=== PATIENT | male | born 1975 | race Caucasian/White ===

== ENCOUNTER 2023-06-10 10:30 | Outpatient (CLI) | payer OTHER, SELFPAY ==
--- NOTE | 2023-06-10 13:36 | W.ANESCHARGE ---
Anesthesia Charges Start Date/Time Anesthesia Start Date: 06/10/23 Anesthesia Start Time: 11:50 Stop Date/Time Anesthesia Stop Date: 06/10/23 Anesthesia Stop Time: 12:35
--- NOTE | 2023-06-10 13:41 | W.ANESCHARGE ---
Anesthesia Charges Start Date/Time Anesthesia Start Date: 06/10/23 Anesthesia Start Time: 11:50 Stop Date/Time Anesthesia Stop Date: 06/10/23 Anesthesia Stop Time: 12:35
== END 2023-06-10 10:31 | disposition home or self-care (01) ==
LOC: OP CLINIC 10:34
PROVIDERS: PCP Student in an Organized Health Care Education/Training Program; Visit Provider Surgery
DX: Z12.11 Encounter for screening for malignant neoplasm of colon (principal); K63.5 Polyp of colon
CPT/HCPCS: 00811; 45385; 88305; J2704

== ENCOUNTER 2024-08-23 21:02 | Emergency (ER) | payer BC, SELFPAY ==
--- OUTSIDE RECORDS SUMMARY | 2024-08-23 21:04 | XMS_ITS | Clinical Summary ---
Author Organization [facility] Address [address] [place] [address] Care Team Providers Care Stitching Department Supervisor Name Role Phone Henry Macias MD Primary Care Provider [phone] Source Comments You are receiving this document as you are listed as the primary care provider,follow-up provider, or the patient has been referred to you for consultation.This is in compliance with the Medicare and[facility] EHR Incentive Program,which states Providers who transition their patient to another setting of careor provider of care or refers their patient to another provider of care shouldprovide summary care record for each transition of care or referral. [facility] Allergies No known active allergies Medications Emtricitabine-Te nofovir AF (DESCOVY) 120-15 MG TABS 12/14/2023 Active acetaZOLAMIDE (DIAMOX) 125 MG tablet Take 1 Tablet (125 mg) by mouth. 12/28/2023 Active ALPRAZolam (XANAX) 0.25 MG tablet Take 1 Tablet (0.25 mg) by mouth every 12 hours as needed. 12/09/2023 Active losartan/hydroch lorothiazide (HYZAAR) 100-25 MG tablet Take 1 Tablet by mouth daily. 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 Previous trial of beta óscar. #10 per year. Hyperlipidemia 06/17/2020 Essential hypertension 03/13/2019 Immunizations Immunization Administration Dates Next Due Flu Vac Preserv Free (3+yrs) 12/09/2023 Fluzone Qiv Multidose Vial 0 .25 (6-35 Mos) 12/27/2019 HepA Adult (19+ yrs) 12/28/2023 HepA, Unspecified Formulation 01/13/1999 HepB Adult (Engerix-B, 20+ y rs, 3 dose series) 12/28/2023,06/24/2016,02/11/2016,10/30 Influenza (Flucelvax) 12/18/2020 Influenza (Flucelvax), Prese rv Free QIV 01/09/2023,11/28/2021 Influenza IIV4 (Quadrivalent ) 0.5mL (45753) 12/27/2019 Jynneos 01/03/2024 MCV4 Menveo 2m.+ (two vial) 10/31/2015 Meningococcal ACWY, Unspecif ied Formulation 01/13/1999 Moderna COVID-19 12+ 12/09/2023,01/09/2023 Moderna Monovalent 12+ 07/16/2020,06/20/2020 Pfizer Bivalent 12+ 11/28/2021 Pfizer Monovalent 12+ Purple Top 01/24/2021 Tdap 12/09/2023,09/26/2013 Typhoid (Typhim Vi, IM) 12/28/2023 Typhoid, Unspecified Formulation 01/13/1999 YF (Yellow Fever) 01/13/1999 Social History Tobacco Use Types Packs/Day Years Used Date Smoking Tobacco: Never Smokeless Tobacco: Never Alcohol Use Standard Drinks/Week Comments Yes 21 (1 standard drink = 0.6 oz pu re alcohol) PHQ-2 Answer Date Recorded PHQ-2 Score 0 02/02/2022 Sex and Gender Information Value Date Recorded Sex Assigned at Not on file 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 Gender Identity Not on file Sexual Orientation Not on file Last Filed Vital Signs Vital Sign Reading Time Taken Comments Blood Pressure 120/80 02/02/2022 12:11 PM TECHNICAL SERVICE ENGINEER Pulse 75 02/02/2022 12:11 PM TECHNICAL SERVICE ENGINEER Temperature 36.1 C (97 F) 11/14/2020 8:57 AM CDT Respiratory Rate 10 03/13/2019 1:44 PM TECHNICAL SERVICE ENGINEER Oxygen Saturation - - Inhaled Oxygen Concentration - - Weight 83 kg (183 lb) 02/02/2022 12:11 PM TECHNICAL SERVICE ENGINEER Height 180.3 cm (5' 11) 02/02/2022 12:11 PM TECHNICAL SERVICE ENGINEER Body Mass Index 25.52 02/02/2022 12:11 PM TECHNICAL SERVICE ENGINEER Plan of Treatment Health Maintenance Due Date Last Done Comments Colonoscopy 1975 Hep C Screening (Preventive Services) 1975 Adult Preventive Visit 07/04/2021 07/04/2020 Orthopoxvirus Vaccine (2 - Risk post-exposure 2-dose series) 01/31/2024 01/03/2024 Cholesterol 06/13/2025 06/13/2020 Zoster/Shingles Vaccine (1 of 2) 02/19/2026 DTaP/Tdap/Td Vaccine (3 - Tdap) 12/08/2033 12/09/2023, 09/26/2013 MCV4 Vaccine Aged Out 10/31/2015, 01/13/1999 No lo nger eligible based on patient's age to complete this topic HIV Screening (Preventive Services) Completed 06/13/2020 COVID-19 Vaccine Completed 12/09/2023, , 11/28/2021, Additional history exists Influenza Vaccine Completed 12/09/2023, , 11/28/2021, Additional history exists HepA Vaccine Completed 12/28/2023, 01/13/1999 HepB Vaccine Completed 12/28/2023, 04/0 07/2016, 02/11/2016, Additional history exists Hib Vaccine Aged Out No longer eligi ble based on patient's age to complete this topic IPV (Polio) Vaccine Aged Out No longe r eligible based on patient's age to complete this topic Meningococcal B Vaccine Aged Out No l onger eligible based on patient's age to complete this topic Pneumococcal Vaccine Aged Out No long er eligible based on patient's age to complete this topic Procedures Procedure Name Priority Date/Time Associated Diagnosis Comments HIV 1/2 AG/AB 4TH GEN Routine 06/13/2020 9:12 AM CDT Screening for HIV (human immunodeficiency virus) LIPID PANEL & DIRECT LDL (IF NEEDED) Routine 06/13/2020 9:12 AM CDT Screening for hyperlipidemia from Last 3 Months or Most Recently Relevant to Health Maintenance Results * HIV 1/2 Ag/Ab 4th Generation (06/13/2020 9:12 AM CDT) Pathologist [facility] HIV 1/2 Antigen/Anti body (4th generation) Negative (Non Reactive) Negative (Non Reactive) 06/13/2020 3:39 PM CDT [facility] Comment:HIV-1 p24 Antigen an d HIV-1/HIV-2 Antibody not detected Blood Venipuncture / Unknown 06/13/2020 9:12 AM CDT 06/13/2020 9:12 AM CDT Henry Macias MD LAB_1 Final Result Performing Organization Address City/State/[facility] Co de Phone Number [facility] [address] [phone] * (ABNORMAL) Lipid Panel and Direct LDL(If Needed) (06/13/2020 9:12 AM CDT) [facility] Cholesterol 243(H) 0 - 199 mg/dL 06/13/2020 3:50 PM CDT [facility] Triglyceride 124 <=149 mg/dL 06/13/2020 3:50 PM CDT [facility] HDL Cholesterol 54 >=40 mg/dL 06/13/2020 3:50 PM CDT [facility] LDL, Calculated 164(H) <130 mg/dL 06/13/2020 3:50 PM CDT [facility] Non HDL Chol, Calculated 189 mg/dL 06/13/2020 3:50 PM CDT [facility] Cholesterol/HDL Ratio 4.5 06/13/2020 3:50 PM CDT [facility] Hours Fasting 12 06/13/2020 3:50 PM CDT [facility] Blood Venipuncture / Unknown 06/13/2020 9:12 AM CDT 06/13/2020 9:12 AM CDT Henry Macias MD LAB_1 Final Result [facility] [address] [address], [facility] [phone] [facility] [address] [place] [address], [facility] [phone] from Last 3 Months or Most Recently Relevant to Health Maintenance Insurance SELF INSURED SELF INSURED Care Teams Stitching Department Supervisor Relationship Specialty [place] [address] [place] [address] PCP - General Family Practice 07/04/20
--- OUTSIDE RECORDS SUMMARY | 2024-08-23 21:05 | XMS_ITS | Clinical Summary ---
Author Organization [facility] Address [address] [place] [address] Care Team Providers Care Auto Inspection Specialist Name Role Phone Pcp, No Primary Care Provider Unavailabl e Allergies No known active allergies Medications losartan-hydroch lorothiazide (HYZAAR) 100-25 mg tabletIndication s:HTN (hypertension) Take 1 Tablet by mouth once daily. 90 Tablet 3 4 Active ALPRAZolam (XANAX) 0.25 mg tabletIndication s:Anxiety,Fear of flying Take 1 Tablet (0.25 mg) by mouth every 12 hours if needed for Panic or Anxiety. 25 Tablet 4 Active acetaZOLAMIDE (DIAMOX) 125 mg tabletIndication s:Counseling for travel Take 125 mg by mouth two times daily. Begin 1 day before through 2 days after arriving at highest altitude. 6 Tablet 4 Active sildenafil citrate (VIAGRA) 25 mg tabletIndication s:Erectile dysfunction, unspecified erectile dysfunction type Take 1 Tablet (25 mg) by mouth once daily if needed for Erectile Dysfunction. Take 30 minutes to 4 hours before sexual activity. Max 100mg/24hr. 30 Tablet 11 4 Active EMTRICITABINE 200 MG-TENOFOVIR ALAFENAMIDE FUMARATE 25 MG TABLET 200-25 mgIndications:En counter for HIV pre-exposure prophylaxis Take 1 Tablet by mouth once daily. 60 Tablet 5 Active EMTRICITABINE 200 MG-TENOFOVIR ALAFENAMIDE FUMARATE 25 MG TABLET (DESCOVY) 200-25 mgIndications:En counter for HIV pre-exposure prophylaxis Take 1 Tablet by mouth once daily. 60 Tablet 5 08/16/19 25 Discontinu ed(Reorder (E-cancel not sent)) Active Problems Problem Noted Date Diagnosed Date Rotator cuff tendonitis, right 07/09/2023 Tendonitis of long head of biceps brachii of rig ht shoulder 07/09/2023 Panic attack 12/25/2020 08/31/2022 Overview (08/31/2022): Use of xanax for flying. Previous trial of beta óscar. #10 per year. Hyperlipidemia 06/17/2020 08/31/2022 Essential hypertension 03/13/2019 3 Immunizations Immunization Administration Dates Next Due COVID-19 VACCINE SPIKEVAX (M ODERNA 50MCG/0.5ML) 12YO+ PFS 12/09/2023,01/09/2023 Hepatitis A (Adult) 12/28/2023 Hepatitis A (Peds),Unspecified 01/13/1999 Hepatitis B (Adult) 12/28/2023, 7,02/11/2016,10/30 INFLUENZA, IIV3 PF (AGE >= 6 MO) 12/09/2023 Influenza, IIV4 (=>6mos) MDV 12/27/2019 Influenza, Injectable, Mdck, Quadrivalent, W/preservative 12/18/2020 Influenza,CCIIV4 PRESERV FREE 01/09/2023, 022 MENINGOCOCCAL VACCINE 1 VIAL 10-55YO (MENVEO) 10/31/2015 Meningococcal, Unspecified 01/13/1999 Tdap 12/09/2023,09/26/2013 Typhoid (injectable) 12/28/2023 Typhoid, Unspecified 01/13/1999 Yellow Fever 01/13/1999 Family History Medical History Relation Name Comments Diabetes Father Thyroid Disease Father Brain cancer Mother Relation Name Status Comments Father Mother Social History Tobacco Use Types Packs/Day Years Used Date Smoking Tobacco: Never Smokeless Tobacco: Never Tobacco Cessation:Counseling Given: Yes Alcohol Use Standard Drinks/Week Comments Yes 0 (1 standard drink = 0.6 oz pur e alcohol) 14 drinks per week PHQ-2 Answer Date Recorded PHQ-2 TOTAL SCORE 0 12/09/2023 Social Connections Answer Date Recorded Do you often feel lonely or isolated from those around you? 0 12/09/2023 Financial Resource Strain Answer Date R ecorded Difficulty of Paying Living Expenses 3 12/09/2023 Difficulty of Paying Living Expenses Not on file 12/09/2023 Food Insecurity Answer Date Recorded Do you worry your food will run out before you are able to buy more? 1 12/09/2023 Transportation Needs Answer Date Record ed Does lack of transportation keep you from medica l appointments? 1 12/09/2023 Does lack of transportation keep you from work, meetings or getting things that you need? 1 12/09/2023 Housing Stability Answer Date Recorded What is your housing situation today? 1 12/09/2023 Utilities Answer Date Recorded Do you have trouble paying f or utilities (for example, heat, electricity, water, phone)? 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 Gender Identity Not on file Sexual Orientation Not on file Obstetrics History Last Filed Vital Signs Vital Sign Reading Time Taken Comments Blood Pressure 141/94 12/28/2023 1:46 PM CDT Pulse 78 12/28/2023 1:46 PM CDT Temperature 36.8 C (98.2 F) 08/31/2022 9:31 AM CDT Respiratory Rate - - Oxygen Saturation 100% 12/28/2023 1:44 PM CDT Inhaled Oxygen Concentration - - Weight 90.5 kg (199 lb 8 oz) 12/09/2023 9:06 AM CDT Height 178.5 cm (5' 10.28) 12/09/2023 9:06 AM C DT Body Mass Index 28.4 12/09/2023 9:06 AM CDT Plan of Treatment Upcoming Encounters Date Type Department Care Team (Late st Contact Info) Description 09/07/2024 8:15 AM CDT Orders Only [facility] [address] [place] [address] Lab, [place] Health Maintenance Due Date Last Done Comments BMI (ht and wt on same day) for age 18+ 12/08/2024 12/09/2023, 08/31/2022 Depression screening for age 12+ 12/08/2024 12/09/2023, 12/09/2023, 08/31/2022 Colonoscopy through age 75 06/09/202806/09 (Verified in Care Everywhere or Patient Record) Lipids for age 45-75 12/08/2028 12/09/2023, 09/01/19 23 Tetanus booster 12/08/2033 12/09/2023, 09/26/2013 Hepatitis C screening for age 18-79 Completed 08/31/2022 COVID-19 vaccine series Completed 12/09/19 24, 01/09/2023, 11/28/2021, Additional history exists HIV for age 15-65 Completed 12/09/2023, 08/31/2022 Influenza Vaccine Completed 12/09/2023, , 11/28/2021, Additional history exists Tdap Completed 12/09/2023, 09/26/2013 Hepatitis B series for 19+ Completed 12/27, 06/24/2016, 02/11/2016, Additional history exists Pneumococcal series for age 6-49 Aged Out No longer eligible based on patient's age to complete this topic Procedures Procedure Name Priority Date/Time Associated Diagnosis Comments HIV 1/2 ANTIGEN/ANTIBODY FOURTH GENERATION W/RFL (QUEST) Routine 12/09/2023 9:55 AM CDT LIPID PANEL W REFLEX MEASURED LDL Routine 12/09/2023 9:55 AM CDT Hyperlipidemia, unspecified hyperlipidemia type LC HCV ANTIBODY RFX TO QUANT PCR Routine 08/31/2022 10:35 AM CDT Screening examination for STD (sexually transmitted disease) from Last 3 Months or Most Recently Relevant to Health Maintenance Results * HIV 1/2 ANTIGEN/ANTIBODY FOURTH GENERATION W/RFL (QUEST) (12/09/2023 9:55 AM CDT) HIV AG/AB, 4TH GEN NON-REACT ESTELLE NON-REACT ESTELLE [facility] Comment: HIV-1 antigen and HIV-1/HIV-2 antibodies were not detected. There is no laboratory evidence of HIV infection. PLEASE NOTE: This information has been disclosed to you from records whose confidentiality may be protected by state law. If your state requires such protection, then the state law prohibits you from making any further disclosure of the information without the specific written consent of the person to whom it pertains, or as otherwise permitted by law. A general authorization for the release of medical or other information is NOT sufficient for this purpose. For additional information please refer to http://CloudOpt.Everyone Counts/faq/BIH739 (This link is being provided for informational/ educational purposes only.) The performance of this assay has not been clinically validated in patients less than 2 years old. 12/09/2023 9:55 AM CDT 12/09/2023 9:59 AM CDT Yennyclarence Mccannmarti DO SEND OUTS Final Result Performing Organization Address City/State/[place] Co de Phone Number [facility] [address] [place] [address], [facility] [address] [place] [address] * (ABNORMAL) LIPID PANEL W REFLEX MEASURED LDL (12/09/2023 9:55 AM CDT) CHOLESTEROL, TOTAL 240(H) <200 mg/dL [facility] HDL CHOLESTEROL 47 > OR = 40 mg/dL [facility] TRIGLYCERIDES 129 <150 mg/dL [facility] LDL-CHOLESTEROL 167(H) mg/dL (calc) [facility] Comment: Reference range: <100 Desirable range <100 mg/dL for primary prevention; <70 mg/dL for patients with CHD or diabetic patients with > or = 2 CHD risk factors. LDL-C is now calculated using the Vinny calculation, which is a validated novel method providing better accuracy than the Friedewald equation in the estimation of LDL-C. Francisco VALENCIA et al. DOTTIE. 2013;310(19): 8492-4695 (http://education.FreeAgent.PlanGrid/faq/WVK035) CHOL/HDLC RATIO 5.1(H) <5.0 (calc) [facility] NON HDL CHOLESTEROL 193(H) <130 mg/dL (calc) [facility] Comment: For patients with diabetes plus 1 major ASCVD risk factor, treating to a non-HDL-C goal of <100 mg/dL (LDL-C of <70 mg/dL) is considered a therapeutic option. Blood BLOOD SPECIMEN / Unknown 12/09/2023 9:55 AM CDT 12/09/2023 9:59 AM CDT Adei Ramyq DO CHEMISTRY Final Result [facility] [address] [place] [address], [facility] [address] [place] [address] * LC HCV ANTIBODY RFX TO QUANT PCR (08/31/2022 10:35 AM CDT) [facility] HCV Ab Non Reactive Non Reactive 09/02/2022 10:06 PM CDT [facility] Blood BLOOD SPECIMEN / Unknown Venipuncture / Unknown 08/31/2022 10:35 AM CDT 08/31/2022 10:36 AM CDT Narrative [facility] ([facility]) - 09/02/2022 10:06 PM CDT Performed at: [address] [place] [id number] Construction Mill[employer]: Nick Gr MD, Phone: [phone] us Adeclarence Ramymarti DO LABORATORY Final Result [facility] ([facility]) [address] [place] [id number], from Last 3 Months or Most Recently Relevant to Health Maintenance Care Teams Auto Inspection Specialist Relationship Specialty Start Date End Date Pcp, No . PCP - General 03/25/22
[2024-08-23 21:14] VITALS: BP 155/77; PULSE 85; RESP 18; TEMP 36.8; O2SAT 99; BMI 27.9
--- NOTE | 2024-08-23 21:40 | ED.GENADULT ---
HPI - General Adult General Chief complaint: Laceration/Wound Stated complaint: L pointer finger lac Time Seen by Provider: 08/23/24 21:39 History of Present Illness HPI narrative: CC: Left Pointer Finger Laceration pt. cut finger with knife while making food. bleeding hasn't stopped . cms intact. 49-year-old man presenting to the emergency department following cutting his left index finger. I believe was cutting cabbage? Notes to have shaved through his nail and finger. Has had trouble controlling the bleeding. Related Data Home Medications ?Medication ?Instructions ?Recorded ?Confirmed emtricitabine 200 mg-tenofovir 1 tab PO DAILY 08/23/24 08/23/24 alafenamide fumarate 25 mg tablet (Descovy) losartan 100 1 tab PO DAILY 08/23/24 08/23/24 mg-hydrochlorothiazide 25 mg tablet Allergies Allergy/AdvReac Type Severity Reaction Status Date / Time No Known Drug Allergies Allergy Verified 08/23/24 21:15 Review of Systems Status of ROS: Reports: 6 or more systems reviewed and unremarkable except as noted in History and below PFSH PFS Social History Smoking Status: Never smoker Second hand tobacco smoke exposure: No How often do you have a drink containing alcohol: never AUDIT-C Alcohol total score: 0 Non-prescribed substance use: denies use Exam Narrative: Exam Narrative: Pleasant. NAD. Favoring the left hand/finger. Removal of tightly wrapped gauze reveals quickly losing shave injury involving a 3rd of the nail and medial aspect of the periungual nail skin. Const: Vital Signs, click to edit/add: Vital Signs - 24 hr 08/23/24 21:14 Temperature 98.2 F Pulse Rate [Right Pulse Oximeter] 85 Respiratory Rate 18 Blood Pressure [Ri ght Upper Arm] 155/77 H Pulse Oximetry 99 Oxygen Delivery Me thod Room Air Documenting provider has reviewed patient's vital signs: yes Course Vital Signs Vital signs: Initial Vital Signs Temperature 98.2 F 08/23/24 21:14 Temperature Source Temporal Artery Scan 08/23/24 21:14 Pulse Rate 85 08/23/24 21:14 Respiratory Rate 18 08/23/24 21:14 Blood Pressure 155/77 H 08/23/24 21:14 Blood Pressure Mean 103 08/23/24 21:14 Blood Pressure Position Sitting 08/23/24 21:14 Pulse Oximetry 99 08/23/24 21:14 Oxygen Delivery Method Room Air 08/23/24 21:14 Vital Signs Temperature 98.2 F 08/23/24 21:14 Pulse Rate 85 08/23/24 21:14 Respiratory Rate 18 08/23/24 21:14 Blood Pressure 155/77 H 08/23/24 21:14 Pulse Oximetry 99 08/23/24 21:14 Oxygen Delivery Method Room Air 08/23/24 21:14 Temperature 98.2 F 08/23/24 23:38 Pulse Rate 81 08/23/24 23:38 Respiratory Rate 18 08/23/24 23:38 Blood Pressure 141/74 H 08/23/24 23:38 Pulse Oximetry 99 08/23/24 23:38 Oxygen Delivery Method Room Air 08/23/24 23:38 Medical Decision Making MDM Narrative Medical decision making narrative: I do not think repair is so much possible here. Will need to heal by secondary intention. Will not need any imaging. Has already cleansed and his bleeding copiously. Does not feel he needs any anesthesia. Return to place a tourniquet on the proximal finger to control field. And then subsequently surgical foam, little antibiotic ointment and a pressure dressing with gauze. Tourniquet removed. This did appear to control bleeding. Tolerated well. Might benefit also from splint for protection over the next few weeks. This was dispensed. See patient discharge plan for further discussion If you bleed through this current dressing, please replace. You might need some help to do this? If you bleed through re-application, please return. Elevate, ibuprofen for comfort. Change dressing daily over this next week trying to avoid the stabilizing the Gelfoam. This serves as some of your clot or scab. Okay to get wet but until better healed, sealed, avoid soaking; might need finger cotlet to this end. Can protect with the finger Stax splint as well. Watch for spreading redness after a couple of days, marked increase in swelling or redness or pain, purulent drainage. Skin regrowth tends to look whitish and is not necessarily patient services representative of purulence. For further healing, again once sealed over and no scab, consider daily application of vitamin-E oil or silicone containing Band-Aids or ointments. Medical Records Medical records reviewed: Yes I reviewed the patient's medical records Discharge Plan Discharge Clinical Impression: Finger laceration, Laceration of nail bed of finger Patient Disposition: Home, Self-Care Condition: Improved Additional Instructions: If you bleed through this current dressing, please replace. You might need some help to do this? If you bleed through re-application, please return. Elevate, ibuprofen for comfort. Change dressing daily over this next week trying to avoid the stabilizing the Gelfoam. This serves as some of your clot or scab. Okay to get wet but until better healed, sealed, avoid soaking; might need finger cotlet to this end. Can protect with the finger Stax splint as well. Watch for spreading redness after a couple of days, marked increase in swelling or redness or pain, purulent drainage. Skin regrowth tends to look whitish and is not necessarily patient services representative of purulence. For further healing, again once sealed over and no scab, consider daily application of vitamin-E oil or silicone containing Band-Aids or ointments. Prescriptions: No Action losartan-hydrochlorothiazide 100-25 mg tablet 1 tab PO DAILY Descovy 200-25 mg tablet 1 tab PO DAILY Follow Up/Referrals: DURAN MUÑOZ DO [Primary Care Provider, Family Practice] Stand Alone Forms: [employer] Info Instructions
[2024-08-23 23:38] VITALS: BP 141/74; PULSE 81; RESP 18; TEMP 36.8; O2SAT 99
== END 2024-08-23 23:38 | disposition home or self-care (01) ==
PROVIDERS: Emergency Provider Family Medicine; PCP Student in an Organized Health Care Education/Training Program
DX: S61.311A Laceration without foreign body of left index finger with damage to nail, initial encounter (principal); W26.0XXA Contact with knife, initial encounter
CPT/HCPCS: 29130; 99282; 99284